=== PATIENT | male | born 1995 | race African-American/Black ===

== ENCOUNTER → 2020-01-02 | Outpatient (CLI) | payer OTHER ==
[~2020-01-02] MED LIST: AUGMENTIN ES-6100 ML PO; CLARITIN5 MG/5 ML PO; MULTIPLE VITAMI1 CAP PO; NKHM PO
[2020-01-02 12:45] LABS: ALBUMIN 4.1 gm/dl (3.1-4.5); BUN 6 mg/dl (7-24); CHLORIDE 106 mmol/L (98-107); CREATININE 1.04 mg/dL (0.70-1.30); POTASSIUM 3.3 mmol/L (3.5-5.1); SGOT/AST 15 IU/L (3-35); SGPT/ALT 20 U/L (12-78); SODIUM 137 mmol/L (136-145); THYROXINE (T4) TOTAL 10.7 ug/dl (4.5-12.1); TOTAL PROTEIN 7.2 gm/dL (6.4-8.2)
[2020-01-02 12:53] LABS: ALKALINE PHOSPHATASE 74 U/L (45-117)
== END | disposition home or self-care (01) ==
LOC: LAB 11:22
PROVIDERS: Nurse Practitioner Family
DX: E83.52 Hypercalcemia (principal)

== ENCOUNTER 2020-09-27 18:49 | Emergency (ER) | payer OTHER ==
[~2020-09-27] VITALS: Wt 59.0 kg
[2020-09-27 18:55] VITALS: BP 114/57
[2020-09-27] MEDS ORDERED: CYCLOBENZAPRINE10 MG PO (22:33)
== END 2020-09-27 22:43 | disposition home or self-care (01) ==
LOC: ED 18:49
DX: S39.012A Strain of muscle, fascia and tendon of lower back, initial encounter (principal); Z88.8 Allergy status to other drugs, medicaments and biological substances; V89.2XXA Person injured in unspecified motor-vehicle accident, traffic, initial encounter; Y93.89 Activity, other specified; Y92.89 Other specified places as the place of occurrence of the external cause; Y99.8 Other external cause status